=== PATIENT | female | born 2000 ===

== ENCOUNTER 2019-02-20 22:33 | Emergency (ER) | payer SELFPAY ==
[~2019-02-20] VITALS: Ht 154.9 cm; Wt 70.0 kg
[2019-02-20 22:46] VITALS: BP 124/67; PULSE 73; RESP 18; Ht 154.9 cm; Wt 70.0 kg
== END 2019-02-20 23:34 | disposition left against medical advice (07) ==
LOC: FTE 22:33
DX: Z53.21 Procedure and treatment not carried out due to patient leaving prior to being seen by health care provider (principal)